=== PATIENT | female | born 1930 | race Caucasian/White ===

== ENCOUNTER 2017-02-08 09:30 | Outpatient (CLI) | payer MEDICARE ==
[2017-02-08 10:38] LABS: BILIRUBIN,URINE NEGATIVE (NEGATIVE); PH,URINE 7.5 PH (5.0-7.5)
[2017-02-08 10:44] LABS: UR CULTURE IF IND INDICATED
== END 2017-02-08 09:31 | disposition home or self-care (01) ==
LOC: LAB.R 09:30
PROVIDERS: ATTEND Internal Medicine
DX: N39.0 Urinary tract infection, site not specified (principal)
CPT/HCPCS: 81001; 87086

== ENCOUNTER 2017-02-11 12:27 | Outpatient (CLI) | payer MEDICARE ==
[2017-02-11 13:16] LABS: BASOPHILS % (AUTO) 0.6 %; EOSINOPHILS # (AUTO) 0.1 10^3/uL (0.0-0.7); EOSINOPHILS % (AUTO) 1.7 %; HCT - HEMATOCRIT 43.1 % (37.0-47.0); HGB - HEMOGLOBIN 14.9 g/dL (12.0-16.0); LYMPHOCYTES # (AUTO) 1.9 10^3/uL (1.5-3.5); LYMPHOCYTES % (AUTO) 21.8 %; MEAN CORPUSCULAR HGB CONC 34.6 g/dL (32.0-36.0); MEAN CORPUSCULAR VOLUME 92.3 fL (81.0-99.0); MEAN PLATELET VOLUME 7.8 fL (7.9-10.8); MONOCYTES # (AUTO) 0.8 10^3/uL (0.0-1.0); MONOCYTES % (AUTO) 9.1 %; NEUTROPHILS # (AUTO) 5.7 10^3/uL (1.5-6.6); NEUTROPHILS % (AUTO) 66.8 %; NUCLEATED RED BLOOD CELLS AUTO 0.1 /100WBC; RED BLOOD COUNT 4.67 10^6/uL (4.20-5.40); RED CELL DISTRIBUTION WIDTH 14.5 % (12.0-15.0); UNCORRECTED WHITE BLOOD COUNT 8.6 x10^3/uL; WHITE BLOOD COUNT 8.6 x10^3/uL (4.8-10.8)
[2017-02-11 13:41] LABS: ALBUMIN/GLOBULIN RATIO 1.2 (1.0-2.2); TOTAL PROTEIN 6.9 g/dL (6.7-8.2)
== END 2017-02-11 12:28 | disposition home or self-care (01) ==
LOC: LAB.R 12:27
DX: E03.9 Hypothyroidism, unspecified (principal)
CPT/HCPCS: 80053; 84443; 85025

== ENCOUNTER 2017-03-06 08:00 | Outpatient (CLI) | payer MEDICARE | END 2017-03-06 08:01 | disposition home or self-care (01) | LOC: LAB.R 08:00 | DX: M06.4 Inflammatory polyarthropathy (principal) | CPT/HCPCS: 84550; 85651 ==